=== PATIENT | male | born 1965 | race Caucasian/White ===

== ENCOUNTER 2017-07-31 09:50 | Day surgery (SDC) | payer OTHER ==
[2017-07-31] MEDS ORDERED: LIDOCAINE 2% INJ 100 MG/5 ML SDV (FOR ANES.) As Ordered (10:41)
[2017-07-31] MEDS ORDERED: PROPOFOL 200 MG/20 ML VIAL As Ordered ×2 (10:41)
[2017-07-31] MEDS ORDERED: NS 1,000 ML IV (10:45)
== END 2017-07-31 11:22 | disposition home or self-care (01) ==
LOC: M OPP 11:22
DX: Z12.11 Encounter for screening for malignant neoplasm of colon (principal); K62.1 Rectal polyp; K64.0 First degree hemorrhoids; I10 Essential (primary) hypertension; G47.30 Sleep apnea, unspecified; R06.83 Snoring; F17.200 Nicotine dependence, unspecified, uncomplicated; Z79.899 Other long term (current) drug therapy
CPT/HCPCS: 45380